=== PATIENT | male | born 1975 | race Caucasian/White ===

== ENCOUNTER 2017-02-28 09:59 | Emergency (ER) | payer BC ==
--- NOTE | 2017-02-28 10:23 | Emergency Department Record ---
History of Present Illness - General Chief complaint: Eye Problem Stated complaint: LT EYE IRRITATION/RED AND PUFFY Time Seen by Provider: 02/28/17 10:22 Source: Patient Mode of Arrival: Ambulatory Limitations: No limitations - History of Present Illness Initial comments: The patient woke up 2 hours ago and has irritation to the L eye. He denies any injury or trauma and does not wear contacts. He went to bed with no problems and denies any visual changes. chief complaint: Eye redness Onset/Timin -: Hour(s) Onset Description: Awoke with symptoms Location: Left eye Place: Home If Injury: None Eye Symptoms: Pain, Redness Severity: Mild Severity scale (1-10): 3 If Pain, Quality: Other Consistency: Constant Context: Other Associated Symptoms: None Treatments Prior to Arrival: None - Related Data Visual acuity (L) = 20/: 25 Visual acuity (R) = 20/: 25 With correction: No Hx Tetanus Toxoid Vaccination: Yes Patient Tetanus UTD (within 5 yrs): No Previous Rx's Medication Instructions Recorded Erythromycin Base [Erythromycin 1 apply AFFEYE QID #1 tube 02/28/17 OPTH Ointment] Allergies Allergy/AdvReac Type Severity Reaction Status Date / Time No Known Drug Allergies Allergy Verified 02/28/17 10:10 Travel Screening - Travel/Exposure Within Last 30 Days Have you traveled within the last 30 days?: No - Travel/Exposure Within Last Year Have you traveled outside the [place] in the last year?: No - Additonal Travel Details Have you been exposed to anyone with a communicable illness?: No - Travel Symptoms Symptom Screening: None Review of Systems Constitutional: Denies: Chills, Fever Eyes: Denies: Eye discharge, Eye pain, Vision change ENT: Denies: Congestion Past Medical History - SOCIAL HISTORY Smoking Status: Current every day smoker Alcohol Use: Occasional Drug Use: None - RESPIRATORY Hx Respiratory Disorders: No - CARDIOVASCULAR Hx Cardio Disorders: No - NEURO Hx Neuro Disorders: No - GI Hx GI Disorders: No - Hx Genitourinary Disorders: No - ENDOCRINE Hx Diabetes: No Hx Thyroid Disease: No - MUSCULOSKELETAL Hx Musculoskeletal Disorders: No - PSYCH Hx Psych Problems: No - HEMATOLOGY/ONCOLOGY Hx Hematology/Oncology Disorders: No Family Medical History Any Significant Family History?: Yes Hx Cancer: Grandparents Hx Heart Disease: Grandparents Hx HTN: Grandparents Physical Exam - General General Appearance: Alert, Oriented x3, Cooperative, No acute distress - Head Head exam: Atraumatic, Normocephalic, Normal inspection - Eye Eye exam: Normal appearance, PERRL, Conjunctival injection (mild to the L eye.) , EOMI, Other (There is flourescein uptake to the L cornea which appears to be an abrasion from rubbing the eye. There are no ulcers or dendrites on slit lamp. ). negative: Periorbital swelling, Periorbital tenderness (Neg FB on lid eversion.), Scleral icterus With correction: No Image of Eyes: 1 - irregular abrasions. - Neck Neck exam: Normal inspection, Full ROM. negative: Tenderness Course Vital Signs 02/28/17 10:12 Temperature 98 F Pulse Rate 81 Respiratory 16 Rate Blood Pressure 112/74 Pulse Ox 97 - Reevaluation(s) Reevaluation #1: I explained to the patient that it appears he most likely has a mild viral conjunctivitis but has rubbed his eye extensively. He will be discharged on Emycin ointment and will see an eye doctor if not better in 3 days. 02/28/17 11:03 Disposition Disposition: Discharge Clinical Impression: Conjunctival abrasion Qualifiers: Encounter type: initial encounter Laterality: left Qualified Code(s): S05.02XA - Injury of conjunctiva and corneal abrasion without foreign body, left eye, initial encounter Disposition: Home, Self-Care Condition: (1) Good Instructions: Conjunctivitis (ED) Additional Instructions: Please use the eye ointment as directed. Please see your PCP or eye doctor if not better in 3 days. Return to the ER if worse. Prescriptions: Erythromycin Base [Erythromycin OPTH Ointment] 1 apply NATHANIEL QID #1 tube Forms: Patient Portal Access Time of Disposition: 11:05 Quality - Quality Measures Quality Measures: N/A - Blood Pressure Screening View Details: Yes Does Patient Have Any of the Following: No Blood Pressure Classification: Normal BP Reading Systolic Measurement: 111 Diastolic Measurement: 71 Screening for High Blood Pressure: < Normal BP, F/U Not Required > [G8783]
[2017-02-28] MEDS ORDERED: PROPARACAINE HCL OPTH 15ML BTL OPTH ONE (10:50)
== END 2017-02-28 11:14 | disposition home or self-care (01) ==
LOC: ER 09:59
DX: S05.02XA Injury of conjunctiva and corneal abrasion without foreign body, left eye, initial encounter (principal)
CPT/HCPCS: 99282

== ENCOUNTER 2017-06-19 20:30 | Emergency (ER) | payer BC ==
--- NOTE | 2017-06-19 21:12 | Emergency Department Record ---
History of Present Illness - General Chief complaint: Pain Stated complaint: PAIN ON RT SIDE OF FACE Time Seen by Provider: 06/19/17 21:08 Source: Patient Mode of Arrival: Ambulatory Limitations: No limitations - History of Present Illness Initial comments: 42 yo male presents to ED for evaluation of 8-10 day history of right maxillary sinus pain and dental pain symptoms that have worsened despite taking both Amoxicillin and Zithromax for his symptoms. Patient denies change in vision, denies specific dental pain symptoms, and denies ear pain symptoms. Patient denies change in vision, denies trauma to the area. Patient denies health problems at his baseline. MD Complaint: Other (facial pain right) Onset/Timin -: Days(s) Quality: Aching Consistency: Intermittent Improves with: Nothing Worsens with: Nothing Associated Symptoms: Denies other symptoms - Related Data Previous Rx's Medication Instructions Recorded Amoxicillin/Potassium Clav 1 tab PO BID #28 tablet 06/19/17 [Augmentin 875Mg/125Mg] Allergies Allergy/AdvReac Type Severity Reaction Status Date / Time No Known Drug Allergies Allergy Unverified 06/16/17 10:10 Review of Systems Constitutional: Denies: Chills, Fever, Malaise, Night sweats Eyes: Denies: Eye discharge, Eye pain ENT: Reports: Other (sinus pain). Denies: Congestion, Ear pain, Epistaxis Respiratory: Denies: Cough, Dyspnea Cardiovascular: Denies: Chest pain, Dyspnea on exertion Endocrine: Denies: Fatigue, Heat or cold intolerance Gastrointestinal: Denies: Abdominal pain, Nausea, Vomiting Genitourinary: Denies: Incontinence, Retention Musculoskeletal: Denies: Arthralgia, Back pain, Gout, Joint swelling Skin: Denies: Bruising, Change in color Neurological: Denies: Abnormal gait, Confusion, Headache, Seizure Psychiatric: Denies: Anxiety Hematological/Lymphatic: Denies: Anemia, Blood Clots Past Medical History - SOCIAL HISTORY Smoking Status: Current every day smoker - RESPIRATORY Hx Respiratory Disorders: No - CARDIOVASCULAR Hx Cardio Disorders: No - NEURO Hx Neuro Disorders: No - GI Hx GI Disorders: No - Hx Genitourinary Disorders: No - ENDOCRINE Hx Diabetes: No Hx Thyroid Disease: No - MUSCULOSKELETAL Hx Musculoskeletal Disorders: No - PSYCH Hx Psych Problems: No - HEMATOLOGY/ONCOLOGY Hx Hematology/Oncology Disorders: No Family Medical History Hx Cancer: Grandparents Hx Heart Disease: Grandparents Hx HTN: Grandparents Physical Exam - General General Appearance: Alert, Oriented x3, Cooperative, Mild distress Limitations: No limitations - Head Head exam: Atraumatic, Normocephalic, Normal inspection Head exam detail: negative: Abrasion, Contusion, Carrillo's sign, General tenderness, Hematoma, Laceration - Eye Eye exam: Normal appearance. negative: Conjunctival injection, Periorbital swelling, Periorbital tenderness, Scleral icterus - ENT Ear exam: negative: Auricular hematoma, Auricular trauma Nasal Exam: Sinus tenderness. negative: Active bleeding, Discharge, Foreign body Mouth exam: negative: Drooling, Laceration, Muffled voice, Tongue elevation - Neck Neck exam: Normal inspection. negative: Meningismus, Tenderness - Respiratory Respiratory exam: Normal lung sounds bilaterally. negative: Rales, Respiratory distress, Rhonchi, Stridor - Cardiovascular Cardiovascular Exam: Regular rate, Normal rhythm, Normal heart sounds - GI/Abdominal GI/Abdominal exam: Soft. negative: Rebound, Rigid, Tenderness - Rectal Rectal exam: Deferred - exam: Deferred - Extremities Extremities exam: Normal inspection. negative: Calf tenderness, Pedal edema, Tenderness - Back Back exam: Denies: CVA tenderness (R), CVA tenderness (L) - Neurological Neurological exam: Alert, Normal gait, Oriented X3 - Psychiatric Psychiatric exam: Normal affect, Normal mood - Skin Skin exam: Normal color. negative: Abrasion Type of lesion: negative: abrasion Course Vital Signs 06/19/17 21:06 Temperature 98.3 F Pulse Rate [ 92 H Pulse Ox Probe] Respiratory 16 Rate Blood Pressure 134/94 [Left Arm] Pulse Ox 96 - Reevaluation(s) Reevaluation #1: 06/19/17 21:58 CT Maxillofacial bones: Mucosal thickening to the ethmoid, maxillary, and frontal sinuses representing sinusitis. Patient was updated on all results, will initiate treatment with Augmentin for 2 weeks duration and instructions to follow-up with his PCP in 3-5 days as directed. Disposition Disposition: Discharge Clinical Impression: Sinusitis Qualifiers: Sinusitis location: unspecified location Chronicity: acute Recurrence: recurrent Qualified Code(s): J01.91 - Acute recurrent sinusitis, unspecified Disposition: Home, Self-Care Condition: (2) Stable Instructions: Sinusitis (ED) Additional Instructions: Return to ED if your symptoms worsen or if you have any concerns. Augmentin as directed. Follow-up with your family doctor in 3-5 days as directed. Prescriptions: Amoxicillin/Potassium Clav [Augmentin 875Mg/125Mg] 1 tab PO BID #28 tablet Forms: Patient Portal Access Time of Disposition: 22:03 Quality - Quality Measures Quality Measures: N/A - Blood Pressure Screening Does Patient Have Any of the Following: No Blood Pressure Classification: Hypertensive Reading Systolic Measurement: 132 Diastolic Measurement: 98 Screening for High Blood Pressure: < First Hypertensive BP, F/U Documented > [ G8950] First Hypertensive Follow-up Interventions: Referral to alternative/primary care provider.
--- NOTE | 2017-06-21 20:39 | CT SCAN REPORT ---
EXAM: CT SCAN MAXILLOFACIAL WO CONTRAST HISTORY: RIGHT UPPER MANDIBLE PAIN. TECHNIQUE: Axial CT scan of the facial bones performed without IV contrast. Preliminary report provided by [facility]. COMPARISON: None. FINDINGS: There is moderate membrane thickening inferiorly in the frontal sinuses. Moderate membrane thickening in the ethmoids bilaterally. Minor membrane thickening in the maxillary sinuses. Minor membrane thickening anteriorly in the sphenoid sinuses. Visualized mastoids and middle ear cavities appear clear. No abnormal air collection seen within either orbit. No definite facial bone fracture identified. Please note that the majority of the horizontal rami of the mandible are not included. Mild degenerative change at the odontoid-anterior arch of C1 articulation. IMPRESSION: 1. SOME MEMBRANE THICKENING IN SEVERAL OF THE PARANASAL SINUSES, MOST MARKED IN THE ETHMOIDS AND INFERIORLY IN THE FRONTAL SINUSES. 2. ELSEWHERE, THE FACIAL BONES CT APPEARS ESSENTIALLY NEGATIVE. HOWEVER, PLEASE NOTE THAT THE MAJORITY OF THE HORIZONTAL RAMI OF THE MANDIBLE WERE NOT INCLUDED ON THIS STUDY. JOB NUMBER: [id number] MTDD
== END 2017-06-19 22:21 | disposition home or self-care (01) ==
LOC: ER 20:30
DX: J01.91 Acute recurrent sinusitis, unspecified (principal); R68.84 Jaw pain
CPT/HCPCS: 70486; 99283